=== PATIENT | male | born 1990 | race Caucasian/White ===

== ENCOUNTER 2017-11-20 20:27 | Emergency (ER) | payer SELFPAY ==
[~2017-11-20] VITALS: Ht 182.9 cm; Wt 66.9 kg
[2017-11-20 20:34] VITALS: BP 124/84
== END 2017-11-20 23:46 | disposition home or self-care (01) ==
LOC: ED 23:37
DX: S60.413A Abrasion of left middle finger, initial encounter (principal); X58.XXXA Exposure to other specified factors, initial encounter; Y93.89 Activity, other specified; Y99.0 Civilian activity done for income or pay; Y92.69 Other specified industrial and construction area as the place of occurrence of the external cause
CPT/HCPCS: 99284